=== PATIENT | male | born 1970 | race Caucasian/White ===

== ENCOUNTER 2017-01-13 10:14 | Emergency (ER) | payer SELFPAY ==
[~2017-01-13] VITALS: Ht 188 cm; Wt 95.4 kg
[~2017-01-13 10:14] MED LIST: HYDR-3533 PO; IBUP-232 PO; LISI-363 PO
[2017-01-13 10:19] VITALS: BP 205/109; PULSE 78; RESP 15; TEMP 98.6; O2SAT 100
--- NOTE | 2017-01-13 11:10 | PD ---
HPI Chief Complaint: Hypertension Time Seen by Provider: 11:10 Travel History International Travel<30 days: No Contact w/Intl Traveler<30days: No Traveled to known affect area: No History of Present Illness HPI 46-year-old male came to the emergency room with headache, vomiting, body aches and generalized weakness that has been going on for past couple days. He has a machine for blood pressure at home and he has been checking his blood pressure overnight and it was running high. His blood pressure in triage was 208/105. No fever or chills. Patient has history of hypertension but stopped taking his medications 2-3 years ago since he thinks that it was making him lose weight. Patient does not have a primary care physician currently. He is a smoker. Denies any chest pain or shortness of breath. Denies any head trauma. [facility] Past Medical History Narrative Medical List of his past medical, surgical, social and family history is reviewed from the nursing note. Autoimmune Disease: No Cancer: No Cardiovascular Problems: Yes (htn on meds) Diabetes: No Diminished Hearing: No Gastrointestinal Disorders: Yes (ACID REFLEX) Genitourinary: No Hypertension: Yes Immune Disorder: No Musculoskeletal: No Neurologic: No Psychiatric: No Reproductive: No Respiratory: No Immunizations Current: No Thyroid Disease: No Tetanus Vaccination: < 5 Years Influenza Vaccination: No Past Surgical History AICD: No Arteriovenous Shunt: No Insulin Pump: No Pacemaker: No Other Surgery: Yes (LEFT LEG VEIN STRIPPING IN 2003) Social History Alcohol Use: Yes (Rarely) Tobacco Use: Yes (1 PPD) Substance Use: No Allergies-Medications (Allergen,Severity, Reaction): Coded Allergies: No Known Allergies (Verified , 01/13/17) Comments No known drug allergies. Reported Meds & Prescriptions Reported Meds & Active Scripts Active No Active Prescriptions or Reported Medications Narrative Medication List of his home medications reviewed from the nursing note. Review of Systems Except as stated in HPI: all other systems reviewed are Neg Physical Exam Narrative GENERAL: Awake, alert, mild distress SKIN: Focused skin assessment warm/dry. HEAD: Atraumatic. Normocephalic. EYES: Pupils equal and round. No scleral icterus. No injection or drainage. ENT: No nasal bleeding or discharge. Mucous membranes pink and moist. NECK: Trachea midline. No JVD. CARDIOVASCULAR: Regular rate and rhythm. No murmur appreciated. RESPIRATORY: No accessory muscle use. Clear to auscultation. Breath sounds equal bilaterally. GASTROINTESTINAL: Abdomen soft, non-tender, nondistended. Hepatic and splenic margins not palpable. MUSCULOSKELETAL: No obvious deformities. No clubbing. No cyanosis. No edema. NEUROLOGICAL: Awake and alert. No obvious cranial nerve deficits. Motor grossly within normal limits. Normal speech. PSYCHIATRIC: Appropriate mood and affect; insight and judgment normal. Data Data Last Documented VS Orders Orders Sodium Chlor 0.9% 1000 Ml Inj (Ns 1000 M (01/13/17 11:45) Ondansetron Inj (Zofran Inj) (01/13/17 11:45) Amlodipine (Norvasc) (01/13/17 11:45) Healthcare Educator / Telemetry [email or web address] (01/13/17 11:37) [facility] Medical Decision Making Medical Screen Exam Complete: Yes Emergency Medical Condition: Yes Medical Record Reviewed: Yes Differential Diagnosis Essential hypertension, medication noncompliance, viral illness Narrative Course 12:15 PM I had ordered CT scan of his neck, labs, IV fluid bolus, Zofran. However I was told by the charge nurse that when CT scan came to get him he refused to go and said he is just leaving. I never got an opportunity to speak with the patient prior to this. He was however awake and alert in full capacity to make decisions for himself. Procedures EKG Prior to Arrival: No Scripts No Active Prescriptions or Reported Meds Disposition: 07 AGAINST MEDICAL ADVICE Condition: Serious Carlotta Osborne MD Jan 13, 2017 11:10
[2017-01-13] MEDS ORDERED: SODIUM CHLOR 0.9% 1000 ML INJ 1,000 ML IV ONE (11:45)
[2017-01-13] MEDS ORDERED: amLODIPine BESYLATE 5 MG TAB PO ONE (11:45)
[2017-01-13] MEDS ORDERED: ONDANSETRON HCL 4 MG/2 ML VIAL IV PUSH ONE (11:45)
== END 2017-01-13 11:55 | disposition left against medical advice (07) ==
LOC: PHED 10:14
DX: I10 Essential (primary) hypertension (principal); Z53.21 Procedure and treatment not carried out due to patient leaving prior to being seen by health care provider; F17.210 Nicotine dependence, cigarettes, uncomplicated
CPT/HCPCS: 99281